=== PATIENT | male | born 1965 | race Caucasian/White ===

== ENCOUNTER 2017-12-30 00:27 | Inpatient (IN) | payer MEDICAID, OTHER ==
[~2017-12-30] VITALS: Ht 182.9 cm; Wt 104.5 kg
[~2017-12-30 00:27] MED LIST: ALBU18HF2 INH; ASPI-605 PO; BECL8.7A6 IH; CLON0.1T PO; GABA-532 PO; HYDR-3980 PO; IBUP-1955 PO; METF500T6 PO; PANT40TA4 PO; TAMS0.4C34 PO
[2017-12-30] MEDS ORDERED: ONDANSETRON 4 MG/2 ML VIAL IV ONE (01:15)
[2017-12-30] MEDS ORDERED: IV NORMAL SALINE 1000 ML BAG IV ONE (01:15)
[2017-12-30] MEDS ORDERED: MORPHINE SULFATE 2 MG/1 ML DISP.SYRIN IV ONE (01:15)
[2017-12-30] MEDS ORDERED: MORPHINE SULFATE 4 MG/1 ML DISP.SYRIN ONE (01:38)
[2017-12-30] MEDS ORDERED: ONDANSETRON 4 MG/2 ML VIAL ONE (01:38)
[2017-12-30 01:41] LABS: BASOPHILS # (AUTO) 0.1 K/uL (0.0-8.0); BASOPHILS % (AUTO) 0.9 % (0.0-2.0); EOSINOPHILS # (AUTO) 0.3 K/uL (0.0-0.7); EOSINOPHILS % (AUTO) 4.4 % (0.0-7.0); HEMATOCRIT 42.9 % (36.7-47.1); HEMOGLOBIN 14.4 g/dL (12.5-16.3); LYMPHOCYTES # (AUTO) 2.4 K/uL (20.0-40.0); MEAN CORPUSCULAR HEMOGLOBIN 29.4 uug (23.8-33.4); MEAN CORPUSCULAR HGB CONC 34 g/dL (32.5-36.3); MEAN CORPUSCULAR VOLUME 87.8 fL (73.0-96.2); MONOCYTES # (AUTO) 0.9 K/uL (2.0-10.0); NEUTROPHILS % (AUTO) 51.7 % (38.5-71.5); PLATELET COUNT (AUTO) 212 K/uL (152-348); RED BLOOD CELL COUNT(AUTO) 4.88 MIL/uL (4.06-5.63); WHITE BLOOD COUNT (AUTO) 7.6 K/uL (3.6-10.2)
--- NOTE | 2017-12-30 01:45 | NUR ---
Notified regarding pt taking metformin. MD states to hold metformin for 2 days so pt can receive IV contrast.
[2017-12-30 01:50] LABS: CREATININE 0.8 mg/dL (0.6-1.3); POTASSIUM 3.2 mmol/L (3.5-5.1)
[2017-12-30 01:58] LABS: BILIRUBIN,DIRECT 0.2 mg/dL (0.0-0.2); BILIRUBIN,TOTAL 0.6 mg/dL (0.2-1.0); TOTAL PROTEIN, SERUM 6.5 g/dL (6.4-8.2)
[2017-12-30] MEDS ORDERED: IOHEXOL 350 100 ML INFUS..BTL ONE (02:39)
[2017-12-30] MEDS ORDERED: IV NORMAL SALINE 250 ML IV ONE (02:39)
[2017-12-30] MEDS ORDERED: SWABABLE VALVE TRANSFER SET EA MC ONE (02:39)
--- NOTE | 2017-12-30 03:56 | NUR ---
Pt. admitted to Telemetry , under care of Dr. Stewart. Dx: Syncope. Belongs List completed
[2017-12-30] MEDS ORDERED: ALBUTEROL SULFATE 8 GM HFA.AER.AD INH PRN (04:00)
[2017-12-30] MEDS ORDERED: MAGNESIUM HYDROXIDE 30 ML LIQUID UDC PO PRN (04:00)
[2017-12-30] MEDS ORDERED: Z GUARD REMEDY PASTE 57 GM TUBE TOP PRN (04:00)
[2017-12-30] MEDS ORDERED: ACETAMINOPHEN 325 MG TABLET PO PRN (04:00)
[2017-12-30] MEDS ORDERED: HYDROCODONE/APAP 5-325MG TABLET PO PRN (04:00)
[2017-12-30] MEDS ORDERED: ONDANSETRON 4 MG/2 ML VIAL IV PRN (04:00)
--- NOTE | 2017-12-30 04:03 | NUR ---
Report given to Ariel MENCHACA on Telemetry
--- NOTE | 2017-12-30 04:05 | NUR ---
RECEIVED ADMISSION REPORT FROM NIKOLAI KIM, IN ER.
[2017-12-30] MEDS ORDERED: KETOROLAC TROMETHAMINE 30 MG INJ ONE (04:14)
[2017-12-30] MEDS ORDERED: KETOROLAC TROMETHAMINE 30 MG INJ IVP ONE (04:15)
--- NOTE | 2017-12-30 04:25 | NUR ---
PT ARRIVED ON TELE FLOOR VIA WC. PT STABLE AT THIS TIME, V/S HYPOTENSIVE BUT ASYMPTOMATIC. PT C/O GENERALIZED PAIN 01/30, HAS BEEN MEDICATED WITH MORPHINE AND TORADOL IN ER. DENIES C/P, SOB, N/V. PT A/OX4, AMBULATORY. BED IN LOW AND LOCKED POSITION WITH BILATERAL SIDERAILS UP. CALL LIGHT WITHIN REACH. PT IS NSR/REUBEN ON TELE MONITORING.
[2017-12-30 04:50] VITALS: BP 90/56
[2017-12-30] MEDS ORDERED: ALBUTEROL SULFATE 2.5 MG/3 ML NEBU NEB PRN (07:30)
[2017-12-30] MEDS: GABAPENTIN 100 MG CAPSULE PO SCH (08:17)
[2017-12-30] MEDS: IV NS 1000 ML 1,000 ML IV PRN ×2 (08:17→23:41)
[2017-12-30] MEDS: ASPIRIN EC 81 MG TABLET.DR PO SCH (08:17)
[2017-12-30] MEDS: TAMSULOSIN HCL 0.4 MG CAP.SR.24H PO SCH (08:18)
[2017-12-30] MEDS: CLONIDINE HCL 0.1 MG TABLET PO SCH (09:00)
[2017-12-30] MEDS ORDERED: PANTOPRAZOLE SODIUM 40 MG TABLET.DR PO SCH ×2 (09:00→11:22)
[2017-12-30] MEDS ORDERED: INSULIN REGULAR, HUMAN 300 UNIT/3 ML VIAL SQ PRN (10:30)
[2017-12-30] MEDS ORDERED: DEXTROSE 50% 50 ML DISP.SYRIN IV PRN (10:30)
[2017-12-30] MEDS ORDERED: IV NORMAL SALINE 500 ML IV ONE (11:15)
[2017-12-30] MEDS ORDERED: POTASSIUM CHLORIDE 20 MEQ TAB.PRT.SR PO ONE (11:15)
[2017-12-30] MEDS ORDERED: IV NORMAL SALINE 500 ML BAG IV ONE (11:15)
[2017-12-30 11:20] VITALS: BP 100/51
[2017-12-30] MEDS: BLOOD SUGAR DIAGNOSTIC 1 EACH STRIP VI SCH ×3 (11:29→21:55)
[2017-12-30 15:46] VITALS: BP 102/56
--- NOTE | 2017-12-30 18:15 | NUR ---
PATIENT SLEPT INTERMITTENTLY THROUGHOUT THE SHIFT, IN NO DISTRESS, NO SOB, NO C/O OF CHEST PAIN. IVF INFUSING, NO INFILTRATION NOTED. ACCUCHECKS DONE ORDERED, NO S/S OF HYPO/HYPERGLYCEMIA NOTED. PATIENT NO C/O OF DIZZINESS, LIGHTHEADED. PATIENT ABLE TO AMBULATE TO THE TOILET WITH ASSISTANCE. SAFETY MEASURES IN PLACE, WILL CONTINUE TO MONITOR AND ENDORSE TO LOOM CHANGEOVER OPERATOR RN.
--- NOTE | 2017-12-30 18:18 | NUR ---
PATIENT ON TELE MONITOR SINUS REUBEN. Addendum: 12/30/17 at 1819 by ARAMIS RUST RN ADD: PATIENT ASLEEP, EASILY AROUSABLE, IN NO DISTRESS, NO SOB.
[2017-12-30 19:00] VITALS: BP 103/56
[2017-12-30] MEDS: MORPHINE SULFATE 2 MG/1 ML DISP.SYRIN IV PRN (20:42)
[2017-12-31] VITALS: BP 98/57
[2017-12-31] MEDS: MORPHINE SULFATE 2 MG/1 ML DISP.SYRIN IV PRN ×2 (02:03→06:35)
[2017-12-31 04:00] VITALS: BP 96/58
[2017-12-31] MEDS: BLOOD SUGAR DIAGNOSTIC 1 EACH STRIP VI SCH (06:36)
[2017-12-31 06:49] LABS: BASOPHILS # (AUTO) 0.1 K/uL (0.0-8.0); BASOPHILS % (AUTO) 0.9 % (0.0-2.0); EOSINOPHILS # (AUTO) 0.3 K/uL (0.0-0.7); EOSINOPHILS % (AUTO) 3.8 % (0.0-7.0); HEMOGLOBIN 13.4 g/dL (12.5-16.3); LYMPHOCYTES # (AUTO) 1.9 K/uL (20.0-40.0); MEAN CORPUSCULAR HEMOGLOBIN 29.1 uug (23.8-33.4); MEAN CORPUSCULAR HGB CONC 33 g/dL (32.5-36.3); MONOCYTES # (AUTO) 0.7 K/uL (2.0-10.0); MONOCYTES % (AUTO) 10.6 % (0.0-11.0); NEUTROPHILS # (AUTO) 3.9 K/uL (1.8-8.9); NEUTROPHILS % (AUTO) 56.7 % (38.5-71.5); PLATELET COUNT (AUTO) 181 K/uL (152-348); RED BLOOD CELL COUNT(AUTO) 4.61 MIL/uL (4.06-5.63); WHITE BLOOD COUNT (AUTO) 6.9 K/uL (3.6-10.2)
[2017-12-31 07:00] LABS: CREATININE 0.9 mg/dL (0.6-1.3); MAGNESIUM 1.8 mg/dL (1.8-2.4); PHOSPHOROUS 2.5 mg/dL (2.5-4.9)
--- NOTE | 2017-12-31 07:20 | NUR ---
Received patient in bed, awake, alert and oriented x4, in no acute distress. Denies chest pain or SOB. Denies N/V/Dizziness. IV site on RFA intact with IV fluids NS at 75 cc/hr. NSB on monitor, with HR on 50s. Patient asymptomatic.
[2017-12-31] MEDS: GABAPENTIN 100 MG CAPSULE PO SCH (08:25)
[2017-12-31] MEDS: TAMSULOSIN HCL 0.4 MG CAP.SR.24H PO SCH (08:25)
[2017-12-31] MEDS: ASPIRIN EC 81 MG TABLET.DR PO SCH (08:25)
[2017-12-31] MEDS: CLONIDINE HCL 0.1 MG TABLET PO SCH (08:25)
[2017-12-31] MEDS ORDERED: ASPI81TA31 PO (11:09)
[2017-12-31] MEDS ORDERED: HYDR-548 PO (11:09)
[2017-12-31] MEDS ORDERED: GABA600T2 PO (11:09)
[2017-12-31 11:22] VITALS: BP 114/68
--- NOTE | 2017-12-31 11:51 | NUR ---
Patient was discharged to home in stable condition. discharge instructions given, also prescriptions given to patient. Unable to set up follow up appointment d/t the weekend. Patient does not have PCP, offered [facility], unable to set up appointment at this time because of the weekend. Address and phone number provided to patient, instructed to make appointment on Tuesday, able to verbalized understanding. Left the hospital in stable condition.
== END 2017-12-31 11:50 | disposition home or self-care (01) | DRG 48 ==
LOC: ER 00:30 → TELE 04:15
PROVIDERS: ADMIT Internal Medicine; ATTEND Nurse Practitioner Acute Care
DX: G90.8 Other disorders of autonomic nervous system (principal); E44.0 Moderate protein-calorie malnutrition; I69.354 Hemiplegia and hemiparesis following cerebral infarction affecting left non-dominant side; E66.01 Morbid (severe) obesity due to excess calories; I10 Essential (primary) hypertension; J44.9 Chronic obstructive pulmonary disease, unspecified; N40.0 Benign prostatic hyperplasia without lower urinary tract symptoms; Z68.31 Body mass index [BMI] 31.0-31.9, adult; E87.6 Hypokalemia; Z79.899 Other long term (current) drug therapy; M50.322 Other cervical disc degeneration at C5-C6 level; E78.5 Hyperlipidemia, unspecified; E11.42 Type 2 diabetes mellitus with diabetic polyneuropathy; Z71.3 Dietary counseling and surveillance; Z91.81 History of falling; R51 Headache; Z79.84 Long term (current) use of oral hypoglycemic drugs
CPT/HCPCS: 36415; 70030-TC; 70496; 71045; 83605; 83735; 84100; 85025; 85730; 87040; 93005; 93307; A4663; J1815; J1885; J2270; J2405; J7030; J7040; J7050; Q9967